=== PATIENT | male | born 1965 | race African-American/Black ===

== ENCOUNTER 2024-03-11 10:39 | Emergency (ER) | payer SELFPAY ==
[~2024-03-11] VITALS: Ht 177.8 cm; Wt 75.0 kg
[2024-03-11 10:52] VITALS: BP 110/79; PULSE 84; RESP 18; TEMP 98.6; O2SAT 98
== END 2024-03-11 13:58 | disposition left against medical advice (07) ==
LOC: EMS 10:39
DX: R51.9 Headache, unspecified (principal); Z53.21 Procedure and treatment not carried out due to patient leaving prior to being seen by health care provider